=== PATIENT | female | born 1960 | race Caucasian/White ===

== ENCOUNTER → 2019-01-05 | Outpatient (CLI) | payer BC, OTHER ==
[~2019-01-05] MED LIST: ACE500 PO; CELE-1 PO; CEP500 PO; HERBALS; IBU200 PO; IBU800 PO; PER PO; VITAMINS; [UNRECOGNIZED DRUG - CODE] TOP
--- NOTE | 2019-01-05 16:00 | RADIOLOGY IMAGING REPORT ---
[place] [facility] [place] NAME: ALETHA JOSUE : [id number] MR: [id number] V: [id number] EXAM DATE: [id number] ORDERING PHYSICIAN: MIRIAM BISHOP TECHNOLOGIST: Conchis Montiel PROCEDURE:BILATERAL DIGITAL SCREENING MAMMOGRAM WITH CAD ASSISTED INTERPRETATION & 3D TOMOSYNTHESIS COMPARISON:Prior mammograms 09/14/17, 09/13/16, 08/06/15, 07/17/14, 08/28/12. INDICATIONS:screening FINDINGS: The breasts are almost entirely fatty. The parenchymal pattern has remained stable allowing for difference in mammographic technique & patient positioning. DIAGNOSTIC CATEGORY 1--NEGATIVE. RECOMMENDATIONS: ROUTINE MAMMOGRAM AND CLINICAL EVALUATION. IMPRESSION: BIRADS 1: Negative. No significant abnormality is seen. Dictated by: Sakshi Olivarez M.D. on 01/05/2019 at 12:03 Transcribed by: TISHA on 01/05/2019 at 14:27 Approved by: Sakshi Olivarez M.D. on 01/05/2019 at 15:59 [facility]
== END ==
LOC: MAMO 02:10
PROVIDERS: ATTEND Family Medicine
DX: Z12.31 Encounter for screening mammogram for malignant neoplasm of breast (principal)
CPT/HCPCS: 77063; 77067

== ENCOUNTER → 2019-02-19 | Outpatient (CLI) | payer BC ==
--- NOTE | 2019-02-19 13:27 | EKG ---
[place] [facility] [place] ALETHA JOSUE : [id number] MR: [id number] V: [id number] EXAM DATE: ORDERING PHYSICIAN: MIRIAM BISHOP TECHNOLOGIST: SONIYA Shen Reason : PREOP-HIP Blood Pressure : / mmHG Vent. Rate : 058 BPM Atrial Rate : 058 BPM P-R Int : 154 ms QRS Dur : 070 ms QT Int : 420 ms P-R-T Axes : -26 028 -02 degrees QTc Int : 412 ms Sinus bradycardia Low voltage QRS Decreased R wave progression anteriorly Abnormal ECG No previous ECGs available Confirmed by SANTINO PEREZ ([id number] on 02/19/2019 8:17:10 PM Referred By: DARIO Confirmed By:SANTINO PEREZ
--- NOTE | 2019-02-19 16:24 | RADIOLOGY IMAGING REPORT ---
FACILITY: [facility] PATIENT NAME: Barbara Weston : 1960 MR: [id number] V: [id number] EXAM DATE: ORDERING PHYSICIAN: MIRIAM BISHOP TECHNOLOGIST: Location: [facility] - [place] Patient: Barbara Weston : 1960 Visit/Account:[id number] Date of Sevice: 02/19/2019 Exam type: CHEST PA LAT History: Preop Comparison: May 17, 2008 . Findings: There is a tiny linear scar in the right lung base. The lungs are free of acute effusions, infiltrat es or edema. Trachea is in midline. Surgical clips project over the right upper thorax. The cardia c silhouette is normal in size. There are mild spondylotic changes of the thoracic spine and degener ative changes at the right AC joint IMPRESSION: 1. Small linear scar in the right lung base. Lungs otherwise free of consolidation Report Dictated By: Sakshi Olivarez MD at 02/19/2019 4:17 PM Report E-Signed By: Sakshi Olivarez MD at 02/19/2019 4:18 PM WSN:[id number]
== END ==
LOC: RESP 13:17
PROVIDERS: ATTEND Family Medicine
DX: Z01.810 Encounter for preprocedural cardiovascular examination (principal); Z01.818 Encounter for other preprocedural examination; R94.31 Abnormal electrocardiogram [ECG] [EKG]
CPT/HCPCS: 71046; 93005